=== PATIENT | female | born 1975 | race Hispanic/Latino ===

== ENCOUNTER 2018-04-26 09:00 | Outpatient (RCR) | payer BC, OTHER, SELFPAY | END 2018-04-27 23:59 | LOC: NS 09:00 | DX: E11.9 Type 2 diabetes mellitus without complications (principal); Z71.3 Dietary counseling and surveillance | CPT/HCPCS: 97802; 97803 ==

== ENCOUNTER 2018-05-10 08:04 | Outpatient (RCR) | payer OTHER, BC, SELFPAY | END 2018-05-10 23:59 | LOC: NS 08:04 | DX: E11.9 Type 2 diabetes mellitus without complications (principal); Z68.32 Body mass index [BMI] 32.0-32.9, adult; Z71.3 Dietary counseling and surveillance | CPT/HCPCS: 97803 ==

== ENCOUNTER 2018-06-21 08:24 | Outpatient (RCR) | payer OTHER, BC, SELFPAY | END 2018-06-28 23:59 | LOC: NS 08:24 | DX: E11.9 Type 2 diabetes mellitus without complications (principal); Z68.32 Body mass index [BMI] 32.0-32.9, adult; Z71.3 Dietary counseling and surveillance ==

== ENCOUNTER → 2025-01-20 | Outpatient (CLI) | payer OTHER, SELFPAY ==
[2025-01-20 16:10] LABS: Absolute Neutrophil Count 3.9 X10^3/uL (2.0-7.7); Basophil# 0.09 X10^3/uL; Basophil% 1.4 % (0-1); Eosinophil# 0.24 X10^3/uL; Eosinophils% 3.7 % (0-5); Hematocrit 33.1 % (37-47); Hemoglobin 11.3 g/dL (12.0-15.0); Lymphocyte % 32.1 % (19-41); Mean Corp Hgb Conc 34.1 g/dL (32-36); Mean Corpuscular Hgb 30.6 pg (27.0-32.0); Mean Corpuscular Volume 89.7 fL (81-99); Mean Platelet Vol. 10.1 fl (6.2-12.0); Monocyte# 0.23 X10^3/uL; Monocyte% 3.5 % (0-10); NRBC Flagged by Analyzer 0 % (0-5); Neutrophil # 3.86 X10^3/uL (2.7-7.7); Platelet Count 403 K/mm3 (150-450); RBC Distribution Width CV 11.9 % (11.6-14.6); RBC Distribution Width SD 38.4 fl (35.1-43.9); Red Blood Count 3.69 M/mm3 (4.2-5.4); White Blood Count 6.5 K/mm3 (4.4-11.0)
[2025-01-20 21:37] LABS: Cholesterol 226 mg/dL (<=200); Follicle Stimulating Hormone 14.6 mIU/mL; High Density Lipoprotein 57 mg/dL; Low Density Lipoprotein Calc. 148 mg/dL; Luteinizing Hormone 5.8 mIU/mL; Triglycerides 101 mg/dL; Very Low Density Lipoprotein 20 mg/dL (5-40); Vitamin D,25 Hydroxy 20.1 ng/mL (30-100); cholesterol:hdl ratio screen 3.94
[2025-01-20 21:49] LABS: ALB/GLOB Ratio 1.4 RATIO (0.9-2.4); AST(SGOT) 24 U/L (<=31); Alanine Aminotransfer ALT/SGPT 19 U/L (<=34); Albumin, Serum 4.5 g/dL (3.5-5.0); Alkaline Phosphatase 81 U/L (35-104); Anion Gap 15 (5-15); BUN 17 mg/dL (4-19); BUN/Creat Ratio 20.7 RATIO (10-20); Calcium,Total 9.8 mg/dL (7.6-11.0); Carbon Dioxide 22.1 mmol/L (21.0-32.0); Chloride 102 mmol/L (98-108); Creatinine, Serum 0.82 mg/dL (0.70-1.20); EST Glomerular Filtration Rate 88 (>60); Globulin 3.2 g/dL (2.2-4.2); Glucose 102 mg/dL (70-99); Potassium 3.7 mmol/L (3.3-5.1); Protein, Total 7.7 g/dL (5.9-8.4); Sodium Level 139 mmol/L (133-145); Total Bilirubin < 0.15 mg/dL (0.00-1.30)
[2025-01-20 22:00] LABS: Hemoglobin A1c 6.1 % (<=5.6)
[2025-01-26 00:07] LABS: Estrogen, Total, Serum 73 pg/mL (.)
== END | disposition home or self-care (01) ==
LOC: MFPLAB 12:09
PROVIDERS: PCP Family Medicine; Referring Provider Family Medicine; Visit Provider Family Medicine
DX: R73.03 Prediabetes (principal); R53.83 Other fatigue; N92.6 Irregular menstruation, unspecified; I10 Essential (primary) hypertension
CPT/HCPCS: 36415; 80053; 80061; 82306; 82672; 83001; 83002; 83036; 84443; 85025

== ENCOUNTER → 2025-03-12 | Outpatient (CLI) | payer OTHER, SELFPAY ==
[2025-03-17 12:08] LABS: HPV APTIMA, High Risk Negative (Negative)
== END | disposition home or self-care (01) ==
LOC: LABSPEC 13:36
PROVIDERS: PCP Family Medicine
DX: Z12.4 Encounter for screening for malignant neoplasm of cervix (principal)
CPT/HCPCS: 88175; G0145

== ENCOUNTER 2025-06-08 12:04 | Outpatient (CLI) | payer OTHER, SELFPAY ==
[2025-06-08 16:12] LABS: Vitamin D,25 Hydroxy 31.1 ng/mL (30-100)
== END 2025-06-08 23:59 | disposition home or self-care (01) ==
LOC: MFPLAB 12:05
PROVIDERS: PCP Family Medicine; Visit Provider Family Medicine
DX: E55.9 Vitamin D deficiency, unspecified (principal)
CPT/HCPCS: 36415; 82306